=== PATIENT | male | born 1945 | race Caucasian/White ===

== ENCOUNTER → 2017-02-15 | Outpatient (CLI) | payer MEDICARE, OTHER ==
--- NOTE | 2017-02-18 07:38 | RADRPT ---
PROCEDURE: Left knee radiographs. CLINICAL INDICATION: Left knee pain. TECHNIQUE: Four views. Weight bearing. Frontal, lateral, oblique, and patellar view. COMPARISON: No prior studies are available for comparison. FINDINGS: There is no fracture or dislocation. The soft tissues are normal. The articular surfaces are intact. There may be patella dina. There is no lytic or blastic lesion. There is no radiopaque foreign body. IMPRESSION: 1. Possible patella dina. 2. Otherwise unremarkable images of the left knee. RPTAT: QQ .Allan Gamez MD, MD Date Time Electronically viewed and signed by .Allan Gamez MD, MD on 02/18/2017 07:38 .R/
== END | disposition home or self-care (01) ==
LOC: HKI 14:55
PROVIDERS: ATTEND Orthopaedic Surgery
DX: M22.42 Chondromalacia patellae, left knee (principal); M25.562 Pain in left knee
CPT/HCPCS: 73564; G0463